=== PATIENT | male | born 1975 | race Two or more races ===

== ENCOUNTER 2022-12-22 16:44 | Inpatient (IN) | payer OTHER ==
[2022-12-22] MEDS ORDERED: LORazepam 2 MG TABLET PO ONE (17:04)
[2022-12-22] MEDS ORDERED: TRIMETHOBENZAMIDE HCL 200MG/2ML INJ IM ONE (17:05)
[2022-12-22 17:12] VITALS: BMI 25.8
[2022-12-22] MEDS ORDERED: LORazepam 2 MG/ML SDV VIAL IM ONE (17:30)
[2022-12-22] MEDS ORDERED: ONDANSETRON *ODT* 4 MG TABLET SL ONE (18:40)
[2022-12-22] MEDS ORDERED: DICYCLOMINE HCL 10 MG CAPSULE PO PRN (18:42)
[2022-12-22] MEDS ORDERED: BENZONATATE 200 MG CAPSULE PO PRN (18:42)
[2022-12-22] MEDS ORDERED: POLYETHYLENE GLYCOL (HEALTHYLAX) 3350 17 GM PACKET PO PRN (18:42)
[2022-12-22] MEDS ORDERED: BISMUTH SUBSALICYLATE 524 MG/30 ML PO PRN (18:42)
[2022-12-22] MEDS ORDERED: ACETAMINOPHEN 325 MG TABLET (FP) PO PRN (18:42)
[2022-12-22] MEDS ORDERED: MAGNESIUM HYDROX 2400MG/30ML ORAL SUSPENSION 30 ML CUP PO PRN (18:42)
[2022-12-22] MEDS ORDERED: MAG HYDROX/AL HYDROX/SIMETH 30 ML UNIT-DOSE CUP PO PRN (18:42)
[2022-12-22] MEDS ORDERED: NALOXONE HCL 0.4 MG/ML VIAL IM PRN (18:42)
[2022-12-22] MEDS ORDERED: NALOXONE HCL (KLOXXADO) 8 MG SPRAY NS PRN (18:42)
[2022-12-22] MEDS ORDERED: LOPERAMIDE HCL 2 MG CAPSULE PO PRN (18:42)
[2022-12-22] MEDS: PRENATAL VITAMINS W/ FOLIC ACID TABLET (FP) PO SCH (18:51)
[2022-12-22] MEDS ORDERED: ONDANSETRON *ODT* 4 MG TABLET ONE (18:53)
[2022-12-22] MEDS: chlordiazePOXIDE HCL 25 MG CAPSULE PO PRN (19:43)
[2022-12-22] MEDS ORDERED: MELATONIN 5 MG TABLETS PO SCH (22:00)
[2022-12-22] MEDS: chlordiazePOXIDE HCL 25 MG CAPSULE PO SCH (22:07)
[2022-12-22] MEDS: THIAMINE HCL 100 MG TABLET (FP) PO SCH (22:08)
[2022-12-22] MEDS: IBUPROFEN 600 MG TABLET (FP) PO PRN (22:09)
[2022-12-22] MEDS: guaiFENesin 600 MG TABLET.ER (FP) PO PRN (22:10)
[2022-12-23] MEDS: chlordiazePOXIDE HCL 25 MG CAPSULE PO SCH ×4 (05:31→22:23)
[2022-12-23] MEDS: IBUPROFEN 600 MG TABLET (FP) PO PRN (05:33)
[2022-12-23] MEDS: guaiFENesin 600 MG TABLET.ER (FP) PO PRN ×2 (05:33→22:22)
[2022-12-23] MEDS: PRENATAL VITAMINS W/ FOLIC ACID TABLET (FP) PO SCH (10:33)
[2022-12-23] MEDS: METHOCARBAMOL 500 MG TABLET PO PRN ×2 (10:36→22:19)
[2022-12-23 11:14] LABS: HEMATOCRIT 33.9 % (35.4-49); HEMOGLOBIN 11.3 GM/dL (11.7-16.9); MCH 28.8 pg (25.7-33.7); MCHC 33.4 g/dl (32.0-35.9); MEAN CELL VOLUME 86.1 fl (80-96); MEAN PLT VOLUME 8.2 fl (7.5-11.1); PLATELET COUNT 279 10^3/uL (134-434); RBC 3.93 M/mm3 (4.00-5.60); WHITE BLOOD COUNT 10.8 K/mm3 (4.0-10.0)
[2022-12-23 11:25] LABS: TOT PROT 7.1 g/dl (6.4-8.2)
[2022-12-23] MEDS: chlordiazePOXIDE HCL 25 MG CAPSULE PO PRN ×2 (13:43→20:25)
[2022-12-23] MEDS: ONDANSETRON *ODT* 4 MG TABLET SL PRN ×2 (13:43→22:19)
[2022-12-23] MEDS: hydrOXYzine PAMOATE 25 MG CAPSULE (FP) PO PRN ×2 (13:43→22:19)
[2022-12-23] MEDS: NICOTINE 10 MG CARTRIDGE (INHALER) IH PRN (20:27)
[2022-12-23] MEDS: QUEtiapine FUMARATE 100 MG TABLET (FP) PO SCH (22:19)
[2022-12-23] MEDS: THIAMINE HCL 100 MG TABLET (FP) PO SCH (22:19)
[2022-12-23] MEDS: IBUPROFEN 400 MG TABLET (FP) PO PRN (22:22)
[2022-12-24 01:39] LABS: ALBUMIN 3.6 g/dl (3.4-5.0); BLOOD UREA NITROGEN 13.9 mg/dL (7-18); CALCIUM 8.3 mg/dL (8.5-10.1)
[2022-12-24 01:43] LABS: CREATININE 0.9 mg/dL (0.55-1.3)
[2022-12-24 01:44] LABS: BILIRUBIN,TOTAL 1.1 mg/dL (0.2-1)
[2022-12-24] MEDS: chlordiazePOXIDE HCL 25 MG CAPSULE PO SCH ×4 (05:57→22:13)
[2022-12-24] MEDS: guaiFENesin 600 MG TABLET.ER (FP) PO PRN ×2 (06:00→22:14)
[2022-12-24] MEDS: chlordiazePOXIDE HCL 25 MG CAPSULE PO PRN ×2 (08:58→15:00)
[2022-12-24] MEDS: hydrOXYzine PAMOATE 25 MG CAPSULE (FP) PO PRN ×2 (09:01→22:12)
[2022-12-24] MEDS: PRENATAL VITAMINS W/ FOLIC ACID TABLET (FP) PO SCH (09:01)
[2022-12-24] MEDS: ESCITALOPRAM OXALATE 10 MG TABLET PO SCH (09:01)
[2022-12-24] MEDS: IBUPROFEN 400 MG TABLET (FP) PO PRN (09:02)
[2022-12-24] MEDS ORDERED: POTASSIUM CHLORIDE ORAL LIQUID 20 MEQ/15 ML PO ONE (15:10)
[2022-12-24] MEDS: NICOTINE 10 MG CARTRIDGE (INHALER) IH PRN (19:33)
[2022-12-24] MEDS: THIAMINE HCL 100 MG TABLET (FP) PO SCH (22:12)
[2022-12-24] MEDS: METHOCARBAMOL 500 MG TABLET PO PRN (22:12)
[2022-12-24] MEDS: CALCIUM CARBONATE 650 MG TABLET PO SCH (22:12)
[2022-12-24] MEDS: QUEtiapine FUMARATE 100 MG TABLET (FP) PO SCH (22:12)
[2022-12-25] MEDS ORDERED: chlordiazePOXIDE HCL 10 MG CAPSULE PO PRN
[2022-12-25] MEDS: chlordiazePOXIDE HCL 10 MG CAPSULE PO SCH ×4 (05:18→22:15)
[2022-12-25] MEDS: METHOCARBAMOL 500 MG TABLET PO PRN ×3 (05:19→23:19)
[2022-12-25] MEDS: IBUPROFEN 400 MG TABLET (FP) PO PRN (05:19)
[2022-12-25] MEDS: CALCIUM CARBONATE 650 MG TABLET PO SCH ×2 (10:27→22:14)
[2022-12-25] MEDS: PRENATAL VITAMINS W/ FOLIC ACID TABLET (FP) PO SCH (10:27)
[2022-12-25] MEDS: ESCITALOPRAM OXALATE 10 MG TABLET PO SCH (10:27)
[2022-12-25] MEDS: hydrOXYzine PAMOATE 25 MG CAPSULE (FP) PO PRN (10:29)
[2022-12-25 11:52] LABS: BASO % 0.7 % (0-2.0); EOS % 2.8 % (0-4.5); HEMATOCRIT 33.1 % (35.4-49); HEMOGLOBIN 11.1 GM/dL (11.7-16.9); LYMPH % 16.5 % (8-40); MCH 29.1 pg (25.7-33.7); MCHC 33.6 g/dl (32.0-35.9); MEAN CELL VOLUME 86.5 fl (80-96); MEAN PLT VOLUME 7.6 fl (7.5-11.1); MONO % 6.3 % (3.8-10.2); NEUT % 73.7 % (42.8-82.8); PLATELET COUNT 261 10^3/uL (134-434); RBC 3.82 M/mm3 (4.00-5.60); RDW 18.1 % (11.9-15.9); WHITE BLOOD COUNT 8.6 K/mm3 (4.0-10.0)
[2022-12-25] MEDS: NICOTINE 10 MG CARTRIDGE (INHALER) IH PRN ×2 (11:53→23:17)
[2022-12-25 11:58] LABS: BILIRUBIN,TOTAL 1.2 mg/dL (0.2-1)
[2022-12-25] MEDS: IBUPROFEN 600 MG TABLET (FP) PO PRN ×2 (17:29→23:19)
[2022-12-25] MEDS: QUEtiapine FUMARATE 100 MG TABLET (FP) PO SCH (22:14)
[2022-12-25] MEDS: THIAMINE HCL 100 MG TABLET (FP) PO SCH (22:14)
[2022-12-26] MEDS: chlordiazePOXIDE HCL 10 MG CAPSULE PO SCH ×2 (05:24→17:21)
[2022-12-26] MEDS: METHOCARBAMOL 500 MG TABLET PO PRN ×3 (05:25→22:18)
[2022-12-26] MEDS: IBUPROFEN 400 MG TABLET (FP) PO PRN ×2 (05:25→17:23)
[2022-12-26] MEDS: PRENATAL VITAMINS W/ FOLIC ACID TABLET (FP) PO SCH (10:18)
[2022-12-26] MEDS: ESCITALOPRAM OXALATE 10 MG TABLET PO SCH (10:18)
[2022-12-26] MEDS: CALCIUM CARBONATE 650 MG TABLET PO SCH (10:18)
[2022-12-26] MEDS: hydrOXYzine PAMOATE 25 MG CAPSULE (FP) PO PRN (11:50)
[2022-12-26] MEDS: NICOTINE 10 MG CARTRIDGE (INHALER) IH PRN (16:59)
[2022-12-26] MEDS: BENZOCAINE/MENTHOL (CHLORASEPTIC ) LOZENGE MM PRN (17:24)
[2022-12-26 17:29] LABS: URINE APPEARANCE CLEAR; URINE BILIRUBIN NEGATIVE (NEGATIVE); URINE COLOR YELLOW; URINE GLUCOSE (UA) NEGATIVE (NEGATIVE); URINE KETONE NEGATIVE (NEGATIVE); URINE LEUK ESTERASE NEGATIVE (NEGATIVE); URINE NITRITE NEGATIVE (NEGATIVE); URINE PROTEIN NEGATIVE (NEGATIVE); URINE UROBILINOGEN 0.2 mg/dL (0.2-1.0)
[2022-12-26] MEDS ORDERED: traZODone HCL 50 MG TABLET (FP) PO SCH (22:00)
[2022-12-26] MEDS: THIAMINE HCL 100 MG TABLET (FP) PO SCH (22:18)
[2022-12-26] MEDS: QUEtiapine FUMARATE 100 MG TABLET (FP) PO SCH (22:18)
[2022-12-27] MEDS ORDERED: chlordiazePOXIDE HCL 10 MG CAPSULE PO ONE (05:00)
[2022-12-27] MEDS: BENZOCAINE/MENTHOL (CHLORASEPTIC ) LOZENGE MM PRN ×2 (05:53→12:24)
[2022-12-27 10:03] VITALS: BP 108/75; PULSE 116; RESP 16; TEMP 97.5
[2022-12-27] MEDS: ESCITALOPRAM OXALATE 10 MG TABLET PO SCH (10:47)
[2022-12-27] MEDS: PRENATAL VITAMINS W/ FOLIC ACID TABLET (FP) PO SCH (10:47)
[2022-12-27] MEDS: hydrOXYzine PAMOATE 25 MG CAPSULE (FP) PO PRN (10:52)
[2022-12-27] MEDS: NICOTINE 10 MG CARTRIDGE (INHALER) IH PRN (11:27)
[2022-12-27] MEDS ORDERED: QUEtiapine FUMARATE 50 MG TABLET PO ONE (12:22)
[2022-12-27] MEDS ORDERED: QUEtiapine FUMARATE 100 MG TABLET (FP) PO SCH (22:00)
== END 2022-12-27 12:55 | disposition home or self-care (01) | DRG 775 ==
LOC: YASAS 16:44 → Y3N 18:39
PROVIDERS: ADMIT Allergy & Immunology; ATTEND Surgery
PROC: HZ2ZZZZ Detoxification Services for Substance Abuse Treatment (ICD-10-PCS; principal; 2022-12-22)
DX: F10.230 Alcohol dependence with withdrawal, uncomplicated (principal); F10.280 Alcohol dependence with alcohol-induced anxiety disorder; F10.282 Alcohol dependence with alcohol-induced sleep disorder; G40.909 Epilepsy, unspecified, not intractable, without status epilepticus; E83.51 Hypocalcemia; E87.6 Hypokalemia; D72.829 Elevated white blood cell count, unspecified; I10 Essential (primary) hypertension; M54.50 Low back pain, unspecified; G89.29 Other chronic pain; R94.5 Abnormal results of liver function studies
CPT/HCPCS: 36415; 80053; 81003; 82247; 82962; 84132; 84450; 85025; 85027; 86780; C9803-CS; Q0162; U0003; U0005